=== PATIENT | male | born 1970 | race Caucasian/White ===

== ENCOUNTER 2019-03-06 12:15 | Emergency (ER) | payer OTHER ==
[2019-03-06] MEDS ORDERED: DIAZEPAM 10 MG/2 ML INJ SYRINGE ONE (14:24)
[2019-03-06] MEDS ORDERED: MORPHINE 4 MG/ML SYR ONE (14:24)
[2019-03-06] MEDS ORDERED: ONDANSETRON 4 MG (ODT) TAB ONE (14:25)
[2019-03-06] MEDS ORDERED: predniSONE 20 MG TAB ONE (14:25)
--- NOTE | 2019-03-06 14:54 | RAD REPORT ---
EXAM DESCRIPTION: RAD - Lumbar Spine 3 Views - 03/06/2019 2:46 pm CLINICAL HISTORY: Back pain, hyperextension injury COMPARISON: June 2013 FINDINGS: A three-view lumbar spine examination was performed. Lumbar bodies are normal in height an d alignment. No fracture or acute bony process seen. No disc space narrowing. No other significant fi ndings. No pars defects identified. IMPRESSION: Negative Lumbar Spine examination. No significant change from comparison.
--- NOTE | 2019-03-06 15:04 | ER ---
Nurse's Notes [facility] Name: Wesly Segovia Age: 48 yrs Sex: Male : 1970 Arrival Date: 03/06/2019 Time: 12:16 Bed 30 Private MD: Miguel Angel Price V Diagnosis: Low back pain Presentation: 03/06 12:35 Presenting complaint: Patient states: HYPER-EXTENDED BACK YESTERDAY. Transition of bp care: patient was not received from another setting of care. Onset of symptoms is unknown. Risk Assessment: Do you want to hurt yourself or someone else? Patient reports no desire to harm self or others. Initial Sepsis Screen: Does the patient meet any 2 criteria? No. Patient's initial sepsis screen is negative. Does the patient have a suspected source of infection? No. Patient's initial sepsis screen is negative. Care prior to arrival: None. 12:35 Method Of Arrival: Ambulatory bp 12:35 Acuity: XAVIER 5 bp Historical: - Allergies: 12:36 No Known Allergies; bp - Home Meds: 12:36 None [Active]; bp - PMHx: 12:36 None; bp - Immunization history:: Adult Immunizations up to date. - Social history:: Smoking status: Patient/guardian denies using tobacco, Patient/guardian denies using alcohol, street drugs, The patient lives in a [facility]. - Ebola Screening: : No symptoms or risks identified at this time. - Family history:: not pertinent. Screenin:32 Abuse screen: Denies threats or abuse. Denies injuries from another. Nutritional ca1 screening: No deficits noted. Tuberculosis screening: No symptoms or risk factors identified. Fall Risk None identified. Assessment: 13:32 General: Appears in no apparent distress. uncomfortable, Behavior is calm, cooperative, ca1 appropriate for age. Pain: Complains of pain in low back area and buttocks Pain does not radiate. Quality of pain is described as Pain began 2-3 days ago. Is continuous, Aggravated by repositioning, Noted to be grimacing. Neuro: Level of Consciousness is awake, alert, obeys commands, Oriented to person, place, time, situation, Appropriate for age. Cardiovascular: Heart tones S1 S2 present Capillary refill < 3 seconds Patient's skin is warm and dry. Pulses are all present. Respiratory: Airway is patent Respiratory effort is even, unlabored, Respiratory pattern is regular, symmetrical, Breath sounds are clear bilaterally. GI: Abdomen is flat, non-distended, Bowel sounds present X 4 quads. Abd is soft and non tender X 4 quads. : No deficits noted. No signs and/or symptoms were reported regarding the genitourinary system. EENT: No deficits noted. No signs and/or symptoms were reported regarding the EENT system. Derm: Skin is intact, is healthy with good turgor, Skin is pink, warm \T\ dry. Musculoskeletal: Circulation, motion, and sensation intact. Capillary refill < 3 seconds, Range of motion: intact in all extremities. 14:51 Reassessment: Patient appears in no apparent distress at this time. Patient and/or ca1 family updated on plan of care and expected duration. Pain level reassessed. Patient is alert, oriented x 3, equal unlabored respirations, skin warm/dry/pink. 15:21 Reassessment: Patient appears in no apparent distress at this time. Patient is alert, ca1 oriented x 3, equal unlabored respirations, skin warm/dry/pink. Patient states feeling better. Vital Signs: 12:36 BP 136 / 84; Pulse 82; Resp 20; Temp 97.9; Pulse Ox 97% ; Weight 104.33 kg; Height 5 bp ft. 11 in. (180.34 cm); 13:32 BP 141 / 87; Pulse 84; Resp 17 S; Pulse Ox 97% on R/A; Pain 5/10; ca1 14:51 BP 128 / 87; Pulse 77; Resp 17 S; Pulse Ox 96% on R/A; ca1 15:21 BP 117 / 75; Pulse 75; Resp 17 S; Pulse Ox 97% on R/A; Pain 2/10; ca1 12:36 Body Mass Index 32.08 (104.33 kg, 180.34 cm) bp ED Course: 12:16 Patient arrived in ED. as 12:16 Miguel Angel Price MD is Private Physician. as 12:36 Triage completed. bp 12:36 Arm band placed on. bp 13:23 Alvaro Zeng MD is Attending Physician. ma2 13:32 Denita Kowalski RN is Primary Nurse. ca1 13:32 Patient has correct armband on for positive identification. Bed in low position. Call ca1 light in reach. Side rails up X 1. Pulse ox on. NIBP on. Warm blanket given. Head of bed elevated. 13:32 No provider procedures requiring assistance completed. Patient did not have IV access ca1 during this emergency room visit. 14:40 Lumbar Spine (3 Views) XRAY In Process Unspecified. EDMS Administered Medications: 14:23 Drug: predniSONE 40 mg Route: PO; ca1 15:03 Follow up: Response: No adverse reaction ca1 14:25 Drug: Zofran 4 mg Route: PO; ca1 15:03 Follow up: Response: No adverse reaction ca1 14:26 Drug: Valium 10 mg Route: IM; Site: left gluteus; ca1 15:03 Follow up: Response: No adverse reaction; Pain is decreased ca1 14:32 Drug: morphine 4 mg Route: IM; Site: right gluteus; ca1 15:03 Follow up: Response: No adverse reaction; Pain is decreased; RASS: Alert and Calm (0) ca1 Outcome: 15:03 Discharge ordered by MD. fagan 15:33 Discharged to home via wheelchair, with family. ca1 15:33 Condition: stable 15:33 Discharge instructions given to patient, Instructed on discharge instructions, follow up and referral plans. no drinking with medication, no driving heavy equipment, medication usage, Demonstrated understanding of instructions, follow-up care, medications, Prescriptions given X 4. 15:34 Patient left the ED. ca1 Signatures: Dispatcher [employer] Karla Khan Brian, RN RN Alvaro Pizarro MD MD ma2 Acob, Cheryl, RN RN ca1
--- NOTE | 2019-03-06 15:04 | EDPHYS ---
Physician Documentation [facility] Name: Wesly Segovia Age: 48 yrs Sex: Male : 1970 Arrival Date: 03/06/2019 Time: 12:16 Bed 30 Private MD: Miguel Angel Price V ED Physician Alvaro Zeng HPI: 03/06 14:59 This 48 yrs old Male presents to ER via Ambulatory with complaints of Back ma2 Pain. 14:59 The patient presents with pain that is chronic. The symptoms are located in the low ma2 back. Onset: The symptoms/episode began/occurred gradually, 1 week(s) ago. Associated signs and symptoms: Pertinent negatives: constipation, dysuria, headache, nausea, numbness, vomiting, weakness. Severity of symptoms: At their worst the symptoms were moderate, in the emergency department the symptoms are unchanged. The patient has not experienced similar symptoms in the past. Historical: - Allergies: 12:36 No Known Allergies; bp - Home Meds: 12:36 None [Active]; bp - PMHx: 12:36 None; bp - Immunization history:: Adult Immunizations up to date. - Social history:: Smoking status: Patient/guardian denies using tobacco, Patient/guardian denies using alcohol, street drugs, The patient lives in a [facility]. - Ebola Screening: : No symptoms or risks identified at this time. - Family history:: not pertinent. ROS: 14:59 Constitutional: Negative for fever, chills, and weight loss. ma2 14:59 All other systems are negative. Exam: 14:59 Constitutional: This is a well developed, well nourished patient who is awake, alert, ma2 and in no acute distress. Chest/axilla: Normal chest wall appearance and motion. Nontender with no deformity. No lesions are appreciated. Cardiovascular: Regular rate and rhythm with a normal S1 and S2. No gallops, murmurs, or rubs. Normal PMI, no JVD. No pulse deficits. Respiratory: Lungs have equal breath sounds bilaterally, clear to auscultation and percussion. No rales, rhonchi or wheezes noted. No increased work of breathing, no retractions or nasal flaring. Abdomen/GI: Soft, non-tender, with normal bowel sounds. No distension or tympany. No guarding or rebound. No evidence of tenderness throughout. Back: No spinal tenderness. + paraspinal muscle sprain.. No costovertebral tenderness. Full range of motion. Skin: Warm, dry with normal turgor. Normal color with no rashes, no lesions, and no evidence of cellulitis. MS/ Extremity: Pulses equal, no cyanosis. Neurovascular intact. Full, normal range of motion. Neuro: Awake and alert, GCS 15, oriented to person, place, time, and situation. Cranial nerves II-XII grossly intact. Motor strength 5/5 in all extremities. Sensory grossly intact. Cerebellar exam normal. Normal gait. Vital Signs: 12:36 BP 136 / 84; Pulse 82; Resp 20; Temp 97.9; Pulse Ox 97% ; Weight 104.33 kg; Height 5 bp ft. 11 in. (180.34 cm); 13:32 BP 141 / 87; Pulse 84; Resp 17 S; Pulse Ox 97% on R/A; Pain 5/10; ca1 14:51 BP 128 / 87; Pulse 77; Resp 17 S; Pulse Ox 96% on R/A; ca1 15:21 BP 117 / 75; Pulse 75; Resp 17 S; Pulse Ox 97% on R/A; Pain 2/10; ca1 12:36 Body Mass Index 32.08 (104.33 kg, 180.34 cm) bp MDM: 13:23 Patient medically screened. ma2 14:59 Differential diagnosis: Scoliosis sprain, vertebral fracture. Data reviewed: vital ma2 signs, nurses notes. Counseling: I had a detailed discussion with the patient and/or guardian regarding: the historical points, exam findings, and any diagnostic results supporting the discharge/admit diagnosis, the presence of at least one elevated blood pressure reading (>120/80) during this emergency department visit, the need for outpatient follow up. Response to treatment: the patient's symptoms have markedly improved after treatment. 03/06 14:18 Order name: Lumbar Spine (3 Views) XRAY; Complete Time: 15:03 ma2 Administered Medications: 14:23 Drug: predniSONE 40 mg Route: PO; ca1 15:03 Follow up: Response: No adverse reaction ca1 14:25 Drug: Zofran 4 mg Route: PO; ca1 15:03 Follow up: Response: No adverse reaction ca1 14:26 Drug: Valium 10 mg Route: IM; Site: left gluteus; ca1 15:03 Follow up: Response: No adverse reaction; Pain is decreased ca1 14:32 Drug: morphine 4 mg Route: IM; Site: right gluteus; ca1 15:03 Follow up: Response: No adverse reaction; Pain is decreased; RASS: Alert and Calm (0) ca1 Disposition: 03/06/19 15:03 Discharged to Home. Impression: Low back pain. - Condition is Stable. - Discharge Instructions: Back Pain, Adult. - Prescriptions for Tylenol- Codeine #3 300-30 mg Oral Tablet - take 2 tablet by ORAL route every 6 hours As needed; 30 tablet. Valium 10 mg Oral Tablet - take 1 tablet by ORAL route every 8 hours As needed; 20 tablet. Medrol (Juan) 4 mg Oral Tablets, Dose Pack - take 1 tablet by ORAL route as directed - follow package instructions; 1 packet. Cyclobenzaprine 5 mg Oral Tablet - take 1 tablet by ORAL route 3 times per day As needed; 15 tablet. - Medication Reconciliation Form, Thank You Letter, Antibiotic Education, Prescription Opioid Use form. - Follow up: Private Physician; When: Tomorrow; Reason: Recheck today's complaints, Continuance of care. Signatures: Dispatcher [employer] Eric Syed RN RN bp Alvaro Zeng MD MD ma2 Denita Kowalski RN RN ca1 Corrections: (The following items were deleted from the chart) 15:34 15:03 03/06/2019 15:03 Discharged to Home. Impression: Low back pain. Condition is ca1 Stable. Forms are Medication Reconciliation Form, Thank You Letter, Antibiotic Education, Prescription Opioid Use. Follow up: Private Physician; When: Tomorrow; Reason: Recheck today's complaints, Continuance of care. ma2
[2019-03-06 15:52] VITALS: TEMP 97.9
[2019-03-06 15:56] VITALS: BP 117/75; O2SAT 97
== END 2019-03-06 15:34 | disposition home or self-care (01) ==
LOC: ER 12:15
DX: M54.5 Low back pain (principal)
CPT/HCPCS: 72100; 96372; 99284; J7512; J3360

== ENCOUNTER 2021-03-16 21:58 | Emergency (ER) | payer OTHER ==
[2021-03-16 22:37] LABS: Absolute Lymphocytes (CBC) 2.5 K/uL (0.7-4.9); Basophils % 0.6 % (0-1.3); Hematocrit 43.1 % (39.6-49.0); Lymphocytes % 34.9 % (15.3-44.8); MPV 8.3 fL (7.6-11.3); RBC Red Blood Cell Count 4.81 M/uL (4.33-5.43)
[2021-03-16 22:44] LABS: Protime INR 0.98
[2021-03-16] MEDS ORDERED: MAGNES/ALUMIN/SIMET 30ML UCUP ONE (22:47)
[2021-03-16] MEDS ORDERED: LIDOCAINE VISCOUS 2% SOLN 15 ML UDC ONE (22:48)
[2021-03-16 22:49] LABS: ALT/SGPT 72 U/L (12-78); AST/SGOT 29 U/L (15-37); Albumin 3.4 g/dL (3.4-5.0); Alkaline Phosphatase 58 U/L (45-117); BUN Blood Urea Nitrogen 9 mg/dL (7-18); Bicarbonate 27 mmol/L (21-32); Bilirubin Direct 0.2 mg/dL (0-0.2); Bilirubin Total 0.5 mg/dL (0.2-1.0); Glucose Level 105 mg/dL (74-106); Magnesium 2.2 mg/dL (1.8-2.4); NT PRO-BNP 37 pg/mL (<125); Potassium 3.5 mmol/L (3.5-5.1); Protein, Total 7.2 g/dL (6.4-8.2); Sodium Level 142 mmol/L (136-145); Troponin (Emerg Dept Use Only) < 0.02 ng/mL (0.0-0.045)
--- NOTE | 2021-03-16 23:21 | ER ---
Nurse's Notes [facility] Name: Wesly Segovia Age: 50 yrs Sex: Male : 1970 Arrival Date: 03/16/2021 Time: 22:02 Bed 8 Private MD: Diagnosis: Chest pain, unspecified Presentation: 03/16 22:00 Chief complaint: Patient states: Chest pain that began suddenly about 30 min ago after lp1 eating dinner. States pain to center of chest, worst he has ever felt. Denies any symptoms of dizziness, shortness of breath, N/V. reports pain resolved during triage. 22:00 Coronavirus screen: At this time, the client does not indicate any symptoms associated lp1 with coronavirus-19. Ebola Screen: No symptoms or risks identified at this time. Initial Sepsis Screen: Does the patient meet any 2 criteria? No. Patient's initial sepsis screen is negative. Does the patient have a suspected source of infection? No. Patient's initial sepsis screen is negative. Risk Assessment: Do you want to hurt yourself or someone else? Patient reports no desire to harm self or others. Onset of symptoms was March 16, 2021 at 21:30. 22:00 Method Of Arrival: Ambulatory lp1 22:00 Acuity: XAVIER 3 lp1 Historical: - Allergies: 22:31 No Known Allergies; lp1 - Home Meds: 22:31 None [Active]; lp1 - PMHx: 22:31 None; lp1 - PSHx: 22:31 hernia repair; lp1 - Immunization history:: Adult Immunizations up to date. - Social history:: Smoking status: Patient denies any tobacco usage or history of. Patient uses alcohol, only on a social basis. Screenin:32 Abuse screen: Denies threats or abuse. Denies injuries from another. Nutritional lp1 screening: No deficits noted. Tuberculosis screening: No symptoms or risk factors identified. Fall Risk None identified. Assessment: 03/15 22:30 General: Appears in no apparent distress. Behavior is calm, cooperative, appropriate lp1 for age. Pain: Complains of pain in chest Pain does not radiate. Pain currently is 2 out of 10 on a pain scale. Pain began 30 min ago. Neuro: Level of Consciousness is awake, alert, obeys commands, Oriented to person, place, time, situation. Cardiovascular: Capillary refill < 3 seconds in bilateral fingers Patient's skin is warm and dry. Rhythm is sinus rhythm. Respiratory: Respiratory effort is even, unlabored, Denies shortness of breath. GI: No signs and/or symptoms were reported involving the gastrointestinal system. : No signs and/or symptoms were reported regarding the genitourinary system. EENT: No signs and/or symptoms were reported regarding the EENT system. Derm: Skin is pink, warm \T\ dry. Musculoskeletal: No deficits noted. 03/16 23:30 Reassessment: Patient appears in no apparent distress at this time. Patient is alert, lp1 oriented x 3, equal unlabored respirations, skin warm/dry/pink. Patient denies pain at this time. Patient states feeling better. Patient states symptoms have improved. Vital Signs: 22:00 BP 127 / 84; Pulse 83; Resp 16; Temp 98.6(O); Pulse Ox 98% on R/A; Weight 104.33 kg lp1 (R); Height 5 ft. 11 in. (180.34 cm); Pain 2/10; 23:00 BP 127 / 86; Pulse 85; Resp 14; Pulse Ox 97% on R/A; Pain 0/10; lp1 23:30 BP 123 / 87; Pulse 82; Resp 14; Pulse Ox 97% on R/A; Pain 0/10; lp1 22:00 Body Mass Index 32.08 (104.33 kg, 180.34 cm) lp1 ED Course: 22:02 Patient arrived in ED. cf2 22:02 Milo Abreu PA is PHCP. [facility] 22:02 Bernardino Matthews MD is Attending Physician. jmm 22:15 Patient maintains SpO2 saturation greater than 95% on room air. lp1 22:18 XRAY Chest (1 view) In Process Unspecified. EDMS 22:29 Marietta Ghosh, LEONOR is Primary Nurse. lp1 22:30 Inserted saline lock: 20 gauge in right antecubital area, using aseptic technique. lp1 Blood collected. 22:31 Triage completed. lp1 22:32 Arm band placed on. lp1 22:32 Patient has correct armband on for positive identification. Bed in low position. Call lp1 light in reach. head cd reactor operator on. Pulse ox on. NIBP on. 23:30 No provider procedures requiring assistance completed. IV discontinued, No lp1 redness/swelling at site. Pressure dressing applied. Administered Medications: 22:29 Drug: GI Cocktail without - (Maalox Suspension 30 ml, Lidocaine Liquid 2 % 15 lp1 ml) Route: PO; 23:15 Follow up: Response: No adverse reaction lp1 Outcome: 23:20 Discharge ordered by . martine 23:30 Discharged to home ambulatory, with significant other. lp1 23:30 Condition: good 23:30 Discharge instructions given to patient, Instructed on discharge instructions, follow up and referral plans. Demonstrated understanding of instructions, follow-up care. 23:32 Patient left the ED. lp1 Signatures: Dispatcher [employer] EDMS Milo Abreu PA PA jmm Pena, Laura, LEONOR RN lp1 Oleg Dennis cf2
--- NOTE | 2021-03-16 23:21 | EDPHYS ---
Physician Documentation [facility] Name: Wesly Segovia Age: 50 yrs Sex: Male : 1970 Arrival Date: 03/16/2021 Time: 22:02 Bed 8 Private MD: ED Physician Bernardino Matthews HPI: 03/16 23:09 This 50 yrs old Male presents to ER via Ambulatory with complaints of Chest jm Pain. 23:09 The patient or guardian reports chest pain that is located primarily in the substernal [facility] area. Onset: acutely, .5 hour(s) ago. The pain does not radiate. Associated signs and symptoms: Pertinent negatives: shortness of breath, vomiting. Is a 50-year-old male with no chronic medical conditions and presents emerge department with complaints of acute onset substernal chest pain which began while eating beef tips. Patient states there is 2 sharp episodes of pain. Pain lasted less than 5 minutes. Pain subsided after drinking tea. Patient states he has had problems in the past with his esophagus. Denies smoking. Denies family history of coronary artery disease.. Historical: - Allergies: 22:31 No Known Allergies; lp1 - Home Meds: 22:31 None [Active]; lp1 - PMHx: 22:31 None; lp1 - PSHx: 22:31 hernia repair; lp1 - Immunization history:: Adult Immunizations up to date. - Social history:: Smoking status: Patient denies any tobacco usage or history of. Patient uses alcohol, only on a social basis. ROS: 23:09 Constitutional: Negative for fever, chills, and weight loss. jmm 23:09 Cardiovascular: Positive for chest pain. 23:09 All other systems are negative. Exam: 23:09 Constitutional: This is a well developed, well nourished patient who is awake, alert, jmm and in no acute distress. Head/Face: atraumatic. Eyes: EOMI, no conjunctival erythema appreciated ENT: Moist Mucus Membranes Neck: Trachea midline, Supple Chest/axilla: Normal chest wall appearance and motion. 23:09 Respiratory: Normal respirations, no respiratory distress appreciated Abdomen/GI: Non distended, soft Back: Normal ROM Skin: General appearance color normal MS/ Extremity: Moves all extremities, no obvious deformities appreciated, no edema noted to the lower extremities Neuro: Awake and alert, normal gait Psych: Behavior is normal, Mood is normal, Patient is cooperative and pleasant 23:09 Cardiovascular: Rate: normal, Rhythm: regular, Pulses: no pulse deficits are appreciated. Vital Signs: 22:00 BP 127 / 84; Pulse 83; Resp 16; Temp 98.6(O); Pulse Ox 98% on R/A; Weight 104.33 kg lp1 (R); Height 5 ft. 11 in. (180.34 cm); Pain 2/10; 23:00 BP 127 / 86; Pulse 85; Resp 14; Pulse Ox 97% on R/A; Pain 0/10; lp1 23:30 BP 123 / 87; Pulse 82; Resp 14; Pulse Ox 97% on R/A; Pain 0/10; lp1 22:00 Body Mass Index 32.08 (104.33 kg, 180.34 cm) lp1 MDM: 22:13 Patient medically screened. [facility] 23:12 Data reviewed: vital signs, nurses notes. Counseling: I had a detailed discussion with martine the patient and/or guardian regarding: the historical points, exam findings, and any diagnostic results supporting the discharge/admit diagnosis, lab results, radiology results, the need for outpatient follow up, to return to the emergency department if symptoms worsen or persist or if there are any questions or concerns that arise at home. ED course: HEART score = 1. PERC negative. 03/16 22:09 Order name: Basic Metabolic Panel; Complete Time: 23:01 [facility] 03/16 22:09 Order name: CBC with Diff; Complete Time: 23: [facility] 03/16 22:09 Order name: LFT's; Complete Time: 23: [facility] 03/16 22:09 Order name: Magnesium; Complete Time: 23:01 [facility] 03/16 22:09 Order name: NT PRO-BNP; Complete Time: 23:01 [facility] 03/16 22:09 Order name: PT-INR; Complete Time: 23: [facility] 03/16 22:09 Order name: Troponin (emerg Dept Use Only); Complete Time: 23:01 [facility] 03/16 22:09 Order name: XRAY Chest (1 view) [facility] 03/16 22:09 Order name: EKG; Complete Time: 22:10 [facility] 03/16 22:09 Order name: Cardiac monitoring; Complete Time: 22:29 [facility] 03/16 22:09 Order name: EKG - Nurse/Tech; Complete Time: 22:29 [facility] 03/16 22:09 Order name: IV Saline Lock; Complete Time: 22:29 [facility] 03/16 22:09 Order name: Labs collected and sent; Complete Time: 22:29 [facility] 03/16 22:09 Order name: O2 Per Protocol; Complete Time: 22:29 [facility] 03/16 22:09 Order name: O2 Sat Monitoring; Complete Time: 22:29 [facility] 03/16 22:09 Order name: Cardiac monitoring; Complete Time: 22:29 1 03/16 22:09 Order name: EKG - Nurse/Tech; Complete Time: 22:29 1 03/16 22:09 Order name: IV Saline Lock; Complete Time: 22:29 lp1 03/16 22:09 Order name: Labs collected and sent; Complete Time: 22:29 lp1 03/16 22:09 Order name: O2 Per Protocol; Complete Time: :29 1 03/16 22:09 Order name: O2 Sat Monitoring; Complete Time: :29 lp1 Administered Medications: 22:29 Drug: GI Cocktail without - (Maalox Suspension 30 ml, Lidocaine Liquid 2 % 15 lp1 ml) Route: PO; 23:15 Follow up: Response: No adverse reaction lp1 Disposition: 03/17 05:41 Co-signature as Attending Physician, Bernardino Matthews MD. [email or web address] Disposition Summary: 03/16/21 23:20 Discharge Ordered Location: Home [facility] Condition: Stable [facility] Diagnosis - Chest pain, unspecified jmm Followup: [facility] - With: Private Physician - When: 2 - 3 days - Reason: Recheck today's complaints, Continuance of care, Re-evaluation by your physician Discharge Instructions: - Discharge Summary Sheet jmm - Nonspecific Chest Pain, Adult jmm Forms: - Medication Reconciliation Form [facility] - Thank You Letter jm - Antibiotic Education jmm - Prescription Opioid Use jm Signatures: Dispatcher [employer] EDMS Milo Abreu PA PA m Marietta Ghosh RN RN 1 Bernardino Matthews MD MD [email or web address] Corrections: (The following items were deleted from the chart) 03/16 22:10 22:10 BASIC METABOLIC PANEL+C.LAB.BRZ ordered. EDMS EDMS 22:10 22:10 CBC+H.LAB.BRZ ordered. EDMS EDMS 22:10 22:10 HEPATIC FUNCTION+C.LAB.BRZ ordered. EDMS EDMS 22: 22:10 MAGNESIUM+C.LAB.BRZ ordered. EDMS EDMS 22: 22:10 PROBNP+C.LAB.BRZ ordered. EDMS EDMS 22: 22:10 PROTIME (+INR)+COAG.LAB.BRZ ordered. EDMS EDMS 22: 22:10 TROPONIN (EMERG DEPT USE ONLY)+C.LAB.BRZ ordered. EDMS EDMS 22:17 22:10 Chest Single View+RAD.RAD.BRZ ordered. EDMS EDMS
[2021-03-16 23:39] VITALS: TEMP 98.6
[2021-03-16 23:41] VITALS: O2SAT 97
[2021-03-16 23:42] VITALS: BP 123/87
--- NOTE | 2021-03-17 08:38 | RAD REPORT ---
EXAM DESCRIPTION: RAD - Chest Single View - 03/16/2021 10:18 pm CLINICAL HISTORY: CHEST PAIN Chest pain. COMPARISON: No comparisons FINDINGS: Portable technique limits examination quality. The lungs are grossly clear. The heart is normal in size. No displaced fractures. IMPRESSION: No acute intrathoracic process suspected.
== END 2021-03-16 23:32 | disposition home or self-care (01) ==
LOC: ER 21:58
DX: R07.9 Chest pain, unspecified (principal)
CPT/HCPCS: 36415; 71045; 80048; 80076; 83735; 83880; 84484; 85025; 85610; 93005; 99285

== ENCOUNTER 2022-11-02 19:18 | Emergency (ER) | payer OTHER ==
--- OUTSIDE RECORDS SUMMARY | 2022-11-02 19:22 | XMS REPORT | Continuity of Care Document ---
:1970 Author Organization [facility] t Address [address] [facility] [address] [place] [address] Care Team Providers Name Role Phone Miguel Angel Price MD Primary Care Physician JEANNE HUERTAS Attending Clinician Unavailable Vaccine, Ang Db Cbc Fam Attending Clinician Unavailable Jeanne Huertas MD Attending Clinician Therapy, Clc Covid Infusion Attending Clinician Unavailable Elfego Guerra MD Attending Clinician ELFEGO GUERRA Attending Clinician Unavailable Doctor Unassigned, [place] Attending Clinician Unavailable VALENTIN SCHNEIDER Attending Clinician Unavailable Valentin Schneider MD Attending Clinician Lab, Adc Fam Pob I Attending Clinician Unavailable Shannan Coleman Attending Clinician SHANNAN MENCHACA Attending Clinician Unavailable Payers Payer Name Policy Type Policy Number Effective Date Expiration Date Arash marques [employer] [id number] 2018 OUT OF NETWORK 00:00:00 Problems Condition Condition Condition Status Onset Resolution Last Treating Co mments Source Name Details Category Date Date Treatment Clinician Date Atypical Atypical Disease Active Unive rs chest pain chest pain 01-22 it y of 00:00: [address] Branch Peptic Peptic Disease Active Methodi ulcer [facility] Abnormal Abnormal Disease Active Overview: Me thodi x-ray x-ray Formattin st g of this Hospita note l might be different from the original. fluorosco py Dysphagia Dysphagia Disease Active Met hodi [facility] Allergies, Adverse Reactions, Alerts Allergy Allergy Status Severity Reaction(s) Onset Inactive Treating Comm ents Source Name Type Date Date Clinician No Known DA Active U [facility] Allergie 12-28 [place] [facility] 00:[facility] NO KNOWN Drug Active Univers ALLERGIE Class ity of S [facility] Family History Family Member Diagnosis Comments Start Date Stop Date Source Natural father Stomach cancer [facility] Natural mother [facility] Social History Social Habit Start Date Stop Date Quantity Comments Source History SDAR [facility] Binge Hospital History [facility] Alcohol Comment Hospital Exposure to Not sure University of SARS-CoV-2 (event) [facility] Gender identity [facility] Sexual orientation Method [facility] History of tobacco Current smoker [facility] use Hospital History of Social 2019-01-12 2019-01-[address] function 00:00:00 00:00:00 Hospital Tobacco use and 2018-07-06 2018-07-06 Former smokeless Met hodist exposure 00:00:00 00:00:00 tobacco user Hospital History [facility] 2018-07-06 2018-07-06 5 [facility] Alcohol Frequency 00:00:00 00:00:00 Hospita l History [facility] 2018-07-06 2018-07-06 3 [facility] Alcohol Std Drinks 00:00:00 00:00:00 Hospit al Alcohol intake 2018-07-06 2018-07-06 Current drinker [facility] dist 00:00:00 00:00:00 of alcohol Hospital (finding) Sex Assigned At [birth year] [facility] 00:00:00 00:00:00 Hospital Smoking Status Start Date Stop Date Source Former smoker 2016-01-17 00:00:00 2016-01-17 00:00:00 General acute hospital Medications Ordered Filled Start Stop Current Ordering Indication Dosage Frequency Signature Comments Components Source Medication Medication Date Date Medication? Clinician (SIG) Name Name casirivimab 2020-05- No [id number] 1200mg 1,200 mg, Univers -imdevimab 002-21 IV ity of 1200 mg in 20:15: 19:00 Infusion, [place] 60 mL NS 00 :00 ONCE, Medical MINI-BAG Administer Branc h over 20 Minutes, On Wed02/21/21 at 1515, For 1 dose
Ad photoradio operator as an IV infusion via pump or gravity through an intravenou s line containing a sterile, in-line or add-on 0.2-micron polyethers ulfone (PES) filter.&nb sp;Stable 36 hours refrigerat ed; 4 hours at room temperatur e. &nbs p;
No known No Univers medications - ity of 10:11: [address] No known No Univers medications 8- ity of 10:11: [address] No known No Univers medications - ity of 10:11: [address] No known No No known Metho di medications 2-[address] 15:06: s [facility] l No known No [facility] No [facility] No [facility] No known No [facility] medications [facility] No known No [facility] medications [facility] No known No Univers medications [facility] Immunizations Ordered Filled Immunization Date Status Comments Sour e Immunization Name Name SARS-COV-2 COVID-19 2021-05-13 Completed Unive rsity of MODERNA BOOSTER 00:00:00 [facility] VACCINE Branch SARS-COV-2 COVID-19 2021-02-17 Completed Unive rsity of MODERNA VACCINE 00:00:00 [facility] SARS-COV-2 COVID-19 2021-01-20 Completed Unive rsity of MODERNA VACCINE 00:00:00 [facility] Vital Signs Vital Name Observation Time Observation Value Comments Source Systolic blood 2021-02-21 19:50:00 119 mm[Hg] Univer sity of pressure [facility] Diastolic blood 2021-02-21 19:50:00 88 mm[Hg] Unive rsity of pressure [facility] Heart rate 2021-02-21 19:50:00 74 /min Universi [facility] Body temperature 2021-02-21 19:50:[address] [facility] Respiratory rate 2021-02-21 19:50:00 20 /min [facility] Oxygen saturation in 2021-02-21 19:50:00 97 /min University of Arterial blood by [facility] Pulse oximetry Branch Body height 2021-02-21 18:11:00 180.3 cm Universi ty [facility] Body weight 2021-02-21 18:11:00 102.059 kg Universi ty [facility] BMI 2021-02-21 18:11:00 31.38 kg/m2 Universi ty [facility] Systolic blood 2020-12-30 15:19:00 136 mm[Hg] Univer sity of pressure [facility] Diastolic blood 2020-12-30 15:19:00 88 mm[Hg] Unive rsity of [facility] Heart rate 2020-12-30 15:18:00 76 /min Universi ty [facility] Body weight 2020-12-30 15:18:00 102.967 kg Universi ty [facility] BMI 2020-12-30 15:18:00 31.66 kg/m2 Universi ty [facility] Oxygen saturation in 2020-12-30 15:18:00 96 /min University of Arterial blood by [facility] Pulse oximetry Branch Procedures Procedure Date / Time Performed Performing Clinician Ever fermin SARS-COV-2 COVID-19 2021-05-13 21:27:02 Doctor Unassigned, No [facility] [place] VACCINE Name [facility] Branch BOOSTER,0.25ML,IM (MODERNA) CONSENT/REFUSAL FOR 2021-02-21 05:01:00 Doctor Unassigned, No [facility] [place] DIAGNOSIS AND Name Medical Branch TREATMENT Plan of Care Planned Activity Planned Date Details Comments Source Future Scheduled 2022-10-30 [facility]ening [facility] Test 15:50:15 malignant neoplasm of colon (procedure) [code = 401740719] Future Scheduled 2022-10-30 [facility] Test 15:50:15 malignant neoplasm of colon (procedure) [code = 015955420] Future Scheduled 2022-10-30 [facility] for [facility] Test 15:50:15 malignant neoplasm of colon (procedure) [code = 946029753] Future Scheduled 2022-10-30 COVID-19 [facility] 15:50:15 (#1) [code = COVID-19 VACCINE (#1)] Future Scheduled 2022-10-30 [facility] for [facility] Test 15:50:15 malignant neoplasm of colon (procedure) [code = 051411869] Future Scheduled 2022-10-30 [facility] for [facility] Test 15:50:15 malignant neoplasm of colon (procedure) [code = 560284162] Future Scheduled 2022-10-30 SHINGLES VACCINES [facility] Test 15:50:15 (1 of 2) [code = SHINGLES VACCINES (1 of 2)] Future Scheduled 2022-10-30 INFLUENZA VACCINE [facility] Test 15:50:15 [code = INFLUENZA VACCINE] Future Scheduled 2021-03-27 COVID-19 [facility]INE [facility] 01:17:16 (1) [code = COVID-19 VACCINE (1)] Future Scheduled 2021-03-27 Hepatitis C [facility] Test 01:17:16 screening (procedure) [code = 577790712] Future Scheduled 2021-03-27 INFLUENZA VACCINE [facility] Test 01:17:16 [code = INFLUENZA VACCINE] Encounters Start End Encounter Admission Attending Care Care Encounter Source Date/Time Date/Time Type Type Clinicians Facility Department ID 2021-05-13 2021-05-13 Outpatient R KIYA [facility] [id number] Univers 15:10:00 15:36:[address] [facility] 2021-05-13 2021-05-13 Imm/Inj Vaccine, Ang Db Cbc Fam [facility] 1. [id number] Univers 15:10:00 15:20:00 Visit Jeanne Huertas [facility] [id number] ity of [place] [id number] Krishan as DU?BLEA [phone] [address] MEDICAL OFFICE BUILDING 2021-02-21 2021-02-21 Nurse Therapy, Clc Covid Infusion [facility] [id number] Univers 13:04:02 14:04:02 Visit Elfego Guerra [facility] [id number] [id number] [phone] [facility] [address] Branch Office Building 2021-02-21 2021-02-21 Outpatient R OSIEL, [facility] [id number] Univers 13:30:00 13:30:00 ELFEGO itmaxwell [facility] 2021-02-21 2021-02-21 Orders Doctor DEVEN [id number] Univers 00:00:00 00:00:00 Only UnassignedJEANETTE [id number] ity [facility] [id number] Krishan as [phone] [address] 2021-01-21 2021-01-21 Outpatient WYATT, [facility] [id number] Univers 00:00:00 00:00:00 VALENTIN guzman [facility] 2020-12-30 2020-12-30 Office Wyatt, [facility] [id number] Univers 10:08:20 12:55:50 Visit Valentin Flores [id number] ity [facility] [id number] [phone] Fl dical nal 0[address] Branch [facility] 2020-12-30 2020-12-30 Outpatient R WYATT, [facility] [id number] Univers 10:20:00 10:20:00 GAURAVTORREY ashok o f [facility] 2020-10-30 2020-10-30 Laboratory Lab, [facility] Pob I [facility] 1.2. 840.114 [id number] Univers 14:02:20 14:22:20 Only Shannan Menchaca [facility] [id number] ity [facility] [id number] Krishan as Professio [phone] Fl dical nal [address] One 2020-10-30 2020-10-30 Outpatient R BERNARDA, [facility] [id number] Univers 14:00:00 14:00:00 SHANNAN pulido [facility] 2020-10-30 2020-10-30 Letter Doctor CARVALHO [id number] Univers 00:00:00 00:00:00 (Out) UnassJEANETTE braxton [id number] ity of [place] [facility] [id number] Krishan as [phone] [place] [address] Branch 2020-10-30 2020-10-30 Letter Doctor DEVEN 1.2.840.114 [id number] [facility] 00:00:00 00:00:00 (Out) Unassigned, JEANETTE [id number] ity of [place] [facility] [id number] Krishan as [phone] [place] [address] Branch Results This patient has no known results. Notes Date/Time Note Provider Source 2019-01-08 13:12:00-00:00 [id number] [address] PATIENT NAME: CARLOS SEGOVIA ADMIT DATE: 01/02/19 ACCOUNT NO: [id number] ROOM NO: AGE: 48 REPORT TYPE: OPERATIVE REPORT SEX: M ADMITTING PHYSICIAN: ATTENDING PHYSICIAN: Cristhian Bone MD OPERATION DATE: 01/02/2019 PREOPERATIVE DIAGNOSIS: Bilateral inguinal herni as. POSTOPERATIVE DIAGNOSES: 1. Bilateral inguinal hernia. 2. Status post bilateral laparoscopic inguinal h ernia repairs with mesh. PROCEDURE PERFORMED: Laparoscopic bilate ral inguinal hernia repairs with mesh. SURGEON: Cristhian Bone M.D. PYROMETER OPERATOR: VAIBHAV Aguilar. ANESTHESIA: General endotracheal anesthesia plus local. INDICATIONS: Mr. Segovia is a 48-year-old gentlem an who presented to my office with complaints of bilateral inguinal hernias, w hich were confirmed on examination. NARRATIVE OF PROCEDURE: Prior to the procedure, the risks, benefits, and alternatives of the procedur e were explained to the patient and the patient did sign an informed consent. After obtaining inform ed consent, the patient was taken back to the operating room and positioned on the OR table in supine position. A time-out was the n performed by all participating parties and agreed upon as being correct. All participants in the o peration were dressed in appropriate surgical attire including lawton t, mask, gloves, gown, eye protection, and shoe covers. The patient did receive periope rative antibiotics within one hour of skin incision. The patient did have SCDs on and functioning prior to induction of anesthesia. The patient was then induced under general anesthesia and intubated without complication. The patient' s abdomen was then prepared with ChloraPrep and given amador fficient time to dry prior to draping with surgical towels and sterile blue drapes and Ioban barrier . The procedure was begun by making a transverse incision in the infraumbilic al region with a #11 scalpel. The dissection was then don ied through the dermis into the subcutaneous tissue using electrocautery Bovie. Hemostasis was achieved concurrently throughout the dissection using electrocautery Bovie. The disse ction was carried to the anterior rectus sheath where longitudinal incisi on was made to the right of midline using electrocautery Bovie. Then, using an S retractor, the right rectus abdominis muscle was retracted laterally to expose the preperitoneal space. Then, using a gloved index finger, the pr eperitoneal space was entered and bluntly dissected in a sweeping fashion. The n, the dissecting balloon was PATIENT NAME: CARLOS SEGOVIA 146 introduced into the preperitoneal space and dire cted towards the pubic symphysis. After removal of all three under dire ct visualization, the balloon was insufflated by hand. After insufflat ion, the balloon was left inflated for approximately 3 minutes for hemostatic effect. After 3 minutes, the balloon was deflated and removed from th e preperitoneal space without difficulty. Then, the working trocar was introduced in the preperitone al space. The gas tubing was connected and the gas was turned on. After achie vement of insufflation of the preperitoneal space using 5-mm 30-degree laparos cope and camera, the preperitoneal space was entered and visually ins pected. After confirming good hemostasis, attention was tu rned to the anterior abdominal wall for placement of two working trocars in the midline under direct visualization. After placement of two working trocars, attention was turned to the right inguinal region for completion of the dissection in a blunt fashion. This was done using a combination of the laparoscopic Kitner a nd atraumatic graspers. The dissection was carried laterally to exp ose the fibers of the transverse abdominis muscle to make room for the mesh. Medi ally, attention was turned to the Floyd's ligament and conjoined tendon to clean off any loose conn ective tissue overlying the structures in preparation fo r securing the mesh eventually. Then, attention was turned to the right spermati c cord and its associated structures for isolation. This was done using atraumatic grasper. After isolating the spermatic cord and associated structures, attention was turned to t he anterior medial aspect for identification of the hernia sac and reduction of the hernia sac and dissection away from the spermatic cord and reduction back into the peritoneal space. After completion of this, attention was turned to the left inguinal region for completion of the dissection in a simila r fashion. Again, laterally, attention was turned to identifying th e fibers of the transversus abdominis in preparation to make room for the tail of the mesh. Attention was turned medially to Floyd's ligament and conjoi jessica tendon to clean off any loose connective tissue overlying the structures. Then, attentio n was turned to the spermatic cord. It was noted that the patient did have a mo derate-sized cord lipoma present, left spermatic cord and this was reduced back into th e preperitoneal space and dissected free from the spermatic cord. Also, there was noted to be a moderate sized hernia sac, which was also dissect ed free from the base of the spermatic cord anteromedially. After c ompletion of this dissection, the patient was ready for implantation of the mesh . Left large 3DMax mesh made by Bard was introduced into the preperitoneal space in a rolled up fashion. The mesh was unfurled and positioned over the myopectineal plate and sperm atic cord on the left side. After properly positioning t he mesh, it was secured to Floyd's ligament and to the posterior aspect of the left rectus abdominis muscle using absorbable tacks from [employer]. After securing the mesh in place, attention was turned back to the right inguinal region where a right large 3D Max mesh made by Bard was introduced in the preperitoneal space in a jigna d up fashion. Again, the mesh was unfurled over the right myopectineal plate a nd spermatic cord. After properly positioning the mes h again, it was secured to the Floyd's ligament and conjoined tendon on the right and the posterior aspect of the right rectus abdominis muscle. After securing the mesh in pao ce, the insufflation was evacuated under direct visualization prior to re moval of all trocars. After removal of all trocars, all skin sites were infiltrated with 0.25% Marcaine for local pain control. The anterior rectus sheath w as reapproximated using 0 Vicryl in a simple interrupted fashion. Pk's fascia at the infraumbilical incision was reapproximated using 0 Vicryl in a simple interrupted fashion. All skin sites were then reappro ximated using 4-0 Vicryl in a subcuticular fashion. The skin was then cleaned with normal saline and patted dry prior to dressing with surgical adhesive in the form of Dermabond. The patient tolerated the PATIENT NAME: CARLOS SEGOVIA 46 procedure well with no immediate complications. SPECIMENS REMOVED: None. IMPLANTS: Bilateral large 3DMax mesh made by Joseph helms. DRAINS: None. ESTIMATED BLOOD LOSS: Approximately 25 mL. DISPOSITION: At the conclusion of the case, the patient was awakened from anesthesia and extubated without complication an d transferred to the PACU in fair condition to be discharged home per korey negron. Dictated By: Cristhian Bone MD WT: OP:SHAYY/JOEL/ANISA Conf#: [id number]/DID#: [id number] Authenticated by Cristhian Bone MD On 9 02:11:04 PM at 1411 PATIENT NAME: CARLOS SEGOVIA 47 2019-01-02 10:23:00-00:00 [facility] ([facility]) Brief Discharge Note w/Med Rec REPORT#:[id number] REPORT STATUS: Signed DATE:01/02/19 TIME:1023 PATIENT: CARLOS SEGOVIA UNIT #: [id number] ROOM/BED: : 71 AGE: 48 SEX: M ATTEND: Barrington Bone MD ADM AUTHOR: Cristhian Bone MD * ALL edits or amendments must be made on the el ectronic/computer document * Med Rec Med Rec Discharge meds: Start taking the following new medications: IBUPROFEN (MOTRIN) 800 MG TAB 800 MILLIGRAM ORAL TID-MEALS Qty = 15 No Refills Instructions: Take with food. ACETAMINOPHEN/CODEINE (TYLENOL WITH CODEINE #3 3 00/30 MG) 1 TAB TAB 1-2 TABLET ORAL Q4-6HR PRN as needed for Pain Qty = 30 No Refills Instructions: Take with food. Objective VS/I O Last Documented: Result Date Time Pulse Ox 96 01/02 1005 B/P 106/65 01/02 1005 Pulse 68 01/02 1005 Resp 8 01/02 1005 O2 Delivery Simple mask 01/02 958 O2 Flow Rate 6.979275 01/02 09 Temp 97.9 01/02 0958 24 hour I O ending at 0700: 01/02 0700 01/01 1900 Intake Total Output Total Balance Patient 225 lb Weight Weight Standing scale Measurement Method Brief Discharge Note w/Med Rec PCP: PCP: No Primary or Family Physician Problem List/A P: 1. S/P laparoscopic hernia repair 2. Bilateral inguinal hernia Discharge to: home Discharge diagnosis: 48 yo M s/p lap bilateral inguinal hernia repair s with mesh. Activity: as tolerated, light duty, no lifting Diet: regular Wound/dressing care: Clean wound daily, OK to sh ower tomorrow Pt. condition on discharge: stable Prescriptions: e-prescribe Additional instructions: No tub soaking, swimming or sc rubbing incisions for [address] while on narcotics. No lifting greater than 30 karen nds for 6 weeks. Call if havin g fever greater than 101.5 or incisional issues. Follow up i n 10-14 days. Return to work/school: No Follow-up appointment(s): 10-14 days Electronically Signed by Cristhian Bone MD on 0 01/02/19 at 1025 RPT #: [id number] END OF REPORT 2019-01-02 10:10:00-00:00 [facility] ([facility]) Post Anesthesia Evaluation REPORT#:[id number] REPORT STATUS: Signed DATE:01/02/19 TIME:1010 PATIENT: CARLOS SEGOVAI UNIT #: [id number] ROOM/BED: : 71 AGE: 48 SEX: M ATTEND: Barrington Bone MD ADM AUTHOR: Siomara Castro CRNA * ALL edits or amendments must be made on the [employer] document * Post Anesthesia Evaluation Anes. changes from pre-op eval ORM Surgeries: Surgery Date and Time: 01/02/2019 0800 Primary Procedure: LAPAROSCOPIC BILATERAL INGUI NAL HERNIA Anesthetic: GETA Date: 01/02/19 Level of consciousness: no change, patient awake , able to answer questions, participate in this eval. Vital signs: Vital Signs: Date Time Temp Pulse Resp B/P B/P Pulse O2 O2 F low FiO2 Mean Ox Delivery Rate 01/02 1005 68 8 106/65 96 01/02 1000 68 8 116/66 96 01/02 0958 36.6 68 12 122/66 96 Simple 6.599609 mask 01/02 0639 36.1 57 19 130/87 98 Room air Cardiovascular: no change, CV system stable, vit al signs stable Respiratory/Airway: respiratory system stable, m aintains without support Pain: adequately controlled Hydration: adequate Temp status: normothermic Presence of N/V: no Anesthesia complications: no Other changes requiring f/u: none Conclusions: no apparent anes. issues Electronically Signed by Siomara Castro CRNA n 01/02/19 at 1012 RPT #: [id number] END OF REPORT 2019-01-02 10:03:00-00:00 [facility] ([facility]) Bedside Procedure Note REPORT#:[id number] REPORT STATUS: Signed DATE:01/02/19 TIME:1003 PATIENT: CARLOS SEGOVIA UNIT #: [id number] ROOM/BED: : 71 AGE: 48 SEX: M ATTEND: Barrington Bone MD ADM AUTHOR: Cristhian Bone MD * ALL edits or amendments must be made on the [employer] document * Bedside Procedure Note Bedside Procedure Note Start date: 01/02/19 Start time: 0800 Pre-procedure diagnosis: Bilateral inguinal hernia Post-procedure diagnosis: Same as above s/p lap bilateral inguinal hernia repairs with m esh Procedure performed: Laparoscopic bilateral ingu inal hernia repairs with mesh Performed by: Dr. Cristhian Bone MD Aircraft Structural Repairer(s): VAIBHAV Aguilar Indications: 48 yo M with bilateral inguinal hernias. Time out completed: Yes Discussed risks, benefits, alt tx: yes Consent obtained: yes Consent obtained from: patient Anesthesia: general, local - bupivacaine Observer name: Name of independent trained observer: Insertion bundle: cap, full body drape, hand hyg iene, mask, sterile gloves, sterile gown, chlorhexidine/alcohol, Ioban barri er Technique/Procedure: See dictation for full. Specimens removed/altered: none Implant(s): Bilateral large 3D Max meshes Complications: none Estimated blood loss in ml's: 25 Findings: See dictation for full details. Disposition: tolerated proc. well, plan to D/C h ome Electronically Signed by Cristhian Bone MD on 0 01/02/19 at 1017 RPT #: [id number] END OF REPORT
[2022-11-02] MEDS ORDERED: MECLIZINE HCL 12.5 MG TAB ONE (21:41)
--- NOTE | 2022-11-02 22:21 | ER ---
Nurse's Notes [facility] Name: Wesly Segovia Age: 51 yrs Sex: Male : 1970 Arrival Date: 11/02/2022 Time: 19:18 Bed Treatment Private MD: Diagnosis: Benign paroxysmal vertigo, unspecified ear Presentation: 11/02 19:53 Chief complaint: Patient states: vertigo for the last 2 hours after bending over. mindy lg3 also had bilateral ear pressure X2 weeks. complaints of nausea. Coronavirus screen: Client denies travel out of the [place] in the last 14 days. At this time, the client does not indicate any symptoms associated with coronavirus-19. Ebola Screen: No symptoms or risks identified at this time. Initial Sepsis Screen: Does the patient meet any 2 criteria? No. Patient's initial sepsis screen is negative. Does the patient have a suspected source of infection? No. Patient's initial sepsis screen is negative. Risk Assessment: Do you want to hurt yourself or someone else? Patient reports no desire to harm self or others. Onset of symptoms was November 02, 2022. 19:53 Method Of Arrival: Ambulatory lg3 19:53 Acuity: XAVIER 4 lg3 Triage Assessment: 19:54 General: Appears in no apparent distress. comfortable, Behavior is calm, cooperative. lg3 Pain: Denies pain. EENT: No deficits noted. Neuro: No deficits noted. Level of Consciousness is awake, alert, obeys commands, Oriented to person, place, time, situation, Reports dizziness. Cardiovascular: No deficits noted. Denies chest pain, shortness of breath, Capillary refill < 3 seconds Clubbing of nail beds is absent JVD is absent Patient's skin is warm and dry. Respiratory: No deficits noted. Airway is patent Respiratory effort is even, unlabored, Respiratory pattern is regular, symmetrical. GI: No deficits noted. No signs and/or symptoms were reported involving the gastrointestinal system. : No deficits noted. Derm: No deficits noted. No signs and/or symptoms reported regarding the dermatologic system. Skin is intact, is healthy with good turgor, Skin is dry, Skin is normal, Skin temperature is warm. Musculoskeletal: No deficits noted. No signs and/or symptoms reported regarding the musculoskeletal system. Circulation, motion, and sensation intact. Range of motion: intact in all extremities. Historical: - Allergies: 19:54 No Known Allergies; lg3 - Home Meds: 19:54 None [Active]; lg3 - PMHx: 19:54 None; lg3 - PSHx: 19:54 hernia repair; left foot; lg3 - Immunization history:: Adult Immunizations up to date, Client reports receiving the 2nd dose of the Covid vaccine, Flu vaccine is not up to date. - Social history:: Smoking status: Patient denies any tobacco usage or history of. Patient uses alcohol, on a daily basis. admits to "couple of beers" a day. - Family history:: not pertinent. Screenin:20 [facility] ED Fall Risk Assessment (Adult) Score/Fall Risk Level 0 - 2 = Low Risk. Abuse eh3 screen: Denies threats or abuse. Denies injuries from another. Nutritional screening: No deficits noted. Tuberculosis screening: No symptoms or risk factors identified. Assessment: 21:20 General: Appears in no apparent distress. comfortable, Behavior is calm, cooperative, eh3 appropriate for age. Pain: Denies pain. Neuro: Level of Consciousness is awake, alert, obeys commands, Oriented to person, place, time, situation. Neuro: Reports dizziness. Cardiovascular: Capillary refill < 3 seconds Patient's skin is warm and dry. Respiratory: Airway is patent Respiratory effort is even, unlabored, Respiratory pattern is regular, symmetrical. GI: Abdomen is round non-distended. Vital Signs: 19:53 BP 134 / 89; Pulse 76; Resp 19 S; Temp 98.6(O); Pulse Ox 99% ; Weight 103.42 kg (R); lg3 Height 5 ft. 11 in. (R); 21:20 BP 142 / 97; Pulse 78; Resp 18; Pulse Ox 99% on R/A; eh3 19:53 Body Mass Index 31.80 (103.42 kg, 180.34 cm) lg3 ED Course: 19:23 Patient arrived in ED. ja2 19:54 Triage completed. lg3 19:54 Arm band placed on left wrist. lg3 19:59 Pawel Wallace MD is Attending Physician. rt 21:20 Patient has correct armband on for positive identification. Bed in low position. Call [facility] in reach. 21:28 Neema Valentino, LEONOR is Primary Nurse. eh3 22:20 Laura Mack MD is Referral Physician. rt 22:30 No provider procedures requiring assistance completed. Patient did not have IV access mb9 during this emergency room visit. Administered Medications: 21:38 Drug: Meclizine PO 50 mg Route: PO; eh3 22:24 Follow up: Response: Marked relief of symptoms eh3 Outcome: 22:20 Discharge ordered by MD. rt 22:30 Discharged to home ambulatory. mb9 22:30 Condition: stable 22:30 Discharge instructions given to patient, Instructed on discharge instructions, follow up and referral plans. Demonstrated understanding of instructions, follow-up care, medications, Prescriptions given X 1. 22:30 Patient left the ED. mb9 Signatures: Tasha Segovia RN RN lg3 Kerrie Morillo Erin, RN RN eh3 Fay Burnham RN RN mb9 Pawel Wallace MD MD rt Corrections: (The following items were deleted from the chart) 19:58 19:53 Chief complaint: Patient states: vertigo for the last 2 hours after bending over. lg3 complaints of nausea lg3
--- NOTE | 2022-11-02 22:21 | EDPHYS ---
Physician Documentation [facility] Name: Wesly Segovia Age: 51 yrs Sex: Male : 1970 Arrival Date: 11/02/2022 Time: 19:18 Bed Treatment Private MD: ED Physician Pawel Wallace HPI: 11/02 23:09 This 51 yrs old Male presents to ER via Ambulatory with complaints of Dizziness. rt 23:09 Patient presents to the ED with dizziness, described as the room spinning with nausea rt starting today. He does report that for several days, he has had a fullness and pressure in his ears, bilaterally. The patient states that the symptoms became most severe today when he stood up abruptly. Symptoms have significantly proved, ever, have not resolved. Denies other acute complaints at this time. Symptoms are moderate severity, no other aggravating alleviating factors.. Historical: - Allergies: 19:54 No Known Allergies; lg3 - Home Meds: 19:54 None [Active]; lg3 - PMHx: 19:54 None; lg3 - PSHx: 19:54 hernia repair; left foot; lg3 - Immunization history:: Adult Immunizations up to date, Client reports receiving the 2nd dose of the Covid vaccine, Flu vaccine is not up to date. - Social history:: Smoking status: Patient denies any tobacco usage or history of. Patient uses alcohol, on a daily basis. admits to "couple of beers" a day. - Family history:: not pertinent. ROS: 23:09 Constitutional: Negative for fever, chills, and weight loss, Cardiovascular: Negative rt for chest pain, palpitations, and edema, Respiratory: Negative for shortness of breath, cough, wheezing, and pleuritic chest pain. 23:09 MS/Extremity: Negative for injury and deformity, Skin: Negative for injury, rash, and discoloration, Psych: Negative for depression, anxiety, suicide ideation, homicidal ideation, and hallucinations. 23:09 ENT: Positive for Ear fullness, negative for sore throat. 23:09 Abdomen/GI: Positive for nausea, Negative for abdominal pain, vomiting. 23:09 Neuro: Positive for dizziness, Negative for altered mental status. Exam: 23:09 Constitutional: This is a well developed, well nourished patient who is awake, alert, rt and in no acute distress. Head/Face: Normocephalic, atraumatic. Chest/axilla: Normal chest wall appearance and motion. Nontender with no deformity. No lesions are appreciated. Cardiovascular: Regular rate and rhythm with a normal S1 and S2. No gallops, murmurs, or rubs. Normal PMI, no JVD. No pulse deficits. Respiratory: Lungs have equal breath sounds bilaterally, clear to auscultation and percussion. No rales, rhonchi or wheezes noted. No increased work of breathing, no retractions or nasal flaring. Abdomen/GI: Soft, non-tender, with normal bowel sounds. No distension or tympany. No guarding or rebound. No evidence of tenderness throughout. Skin: Warm, dry with normal turgor. Normal color with no rashes, no lesions, and no evidence of cellulitis. MS/ Extremity: Pulses equal, no cyanosis. Neurovascular intact. Full, normal range of motion. Psych: Awake, alert, with orientation to person, place and time. Behavior, mood, and affect are within normal limits. 23:09 Eyes: Extraocular muscles intact, conjunctiva normal, no nystagmus, head impulse and test of skew negative.. 23:09 ENT: Effusions noted to bilateral TMs, no evidence for otitis media. External auditory canals are clear.. 23:09 Neuro: Speech normal, cranial nerves II through XII intact, strength and sensation intact in upper and lower extremities, no ataxia on [id number].. Vital Signs: 19:53 BP 134 / 89; Pulse 76; Resp 19 S; Temp 98.6(O); Pulse Ox 99% ; Weight 103.42 kg (R); lg3 Height 5 ft. 11 in. (R); 21:20 BP 142 / 97; Pulse 78; Resp 18; Pulse Ox 99% on R/A; eh3 19:53 Body Mass Index 31.80 (103.42 kg, 180.34 cm) lg3 MDM: 21:05 Patient medically screened. rt 23:09 Differential diagnosis: Benign positional vertigo, central vertigo. Data reviewed: rt vital signs, nurses notes. Test considered but Not performed: CT: HI NTS exam unremarkable, NIHSS is 0. Low suspicion for central vertigo, neuroimaging is not indicated at this time. Counseling: I had a detailed discussion with the patient and/or guardian regarding: the historical points, exam findings, and any diagnostic results supporting the discharge/admit diagnosis, the need for outpatient follow up, to return to the emergency department if symptoms worsen or persist or if there are any questions or concerns that arise at home. Response to treatment: the patient's symptoms have resolved after treatment. Administered Medications: 21:38 Drug: Meclizine PO 50 mg Route: PO; 3 22:24 Follow up: Response: Marked relief of symptoms [facility] Disposition Summary: 11/02/22 22:20 Discharge Ordered Location: Home rt Condition: Stable rt Problem: new rt Symptoms: are resolved rt Diagnosis - Benign paroxysmal vertigo, unspecified ear rt Followup: rt - With: Laura Mack MD - When: 2 - 3 days - Reason: Discharge Instructions: - Discharge Summary Sheet rt - Benign Positional Vertigo rt Forms: - Medication Reconciliation Form rt - Thank You Letter rt - Antibiotic Education rt - Prescription Opioid Use rt Prescriptions: - Meclizine 25 mg Oral Tablet - take 1 tablet by ORAL route every 8 hours As needed; 30 tablet; Refills: 0, rt Product Selection Permitted Signatures: Tasha Segovia, RN RN 3 Neema Valentino RN RN eh3 Pawel Wallace MD MD rt
[2022-11-03 01:46] VITALS: TEMP 98.6; O2SAT 99
[2022-11-03 01:47] VITALS: BP 142/97
== END 2022-11-02 22:30 | disposition home or self-care (01) ==
LOC: ER 19:18
DX: H81.10 Benign paroxysmal vertigo, unspecified ear (principal)
CPT/HCPCS: 99283; J8597